=== PATIENT | male | born 1960 | race Caucasian/White ===

== ENCOUNTER 2022-04-29 00:38 | Day surgery (SDC) | payer BC, SELFPAY ==
[2022-04-22 15:14] VITALS: BMI 34.2
[2022-04-29 11:37] VITALS: BP 148/91; PULSE 97; RESP 20; TEMP 36.3; O2SAT 98
[2022-04-29 11:38] VITALS: BMI 35.4
[2022-04-29] MEDS: LACTATED RINGERS 1,000 ML 150 ML IV CONT (11:58)
--- NOTE | 2022-04-29 12:28 | P.PNAN_ITS ---
Anes - Initial Pre Proc Eval Procedure: Operation Date: 04/29/22 13:00 Proposed Procedures p Screening Colonoscopy - Johnathan Urrutia MD Date/Time: 04/29/22 12:28 Surgeon: Johnathan Urrutia MD Pre Op Diagnosis: Hx Colon Polyps Patient Data Age: 61 Gender: M Height: 1.75 m Weight: 109 kg Last Vital Signs Temp 97.4 F L 04/29/22 11:37 Pulse 97 04/29/22 11:37 Resp 20 04/29/22 11:37 BP 148/91 H 04/29/22 11:37 Pulse Ox 98 04/29/22 11:37 O2 Del Method Room Air 04/29/22 11:37 Allergies Allergy/AdvReac Type Severity Reaction Status Date / Time No Known Allergies Allergy Verified 04/29/22 11:37 Home Medications Medication Instructions Recorded Confirmed Type adalimumab 40 mg/0.8 mL See Rx Instructions .Route .COMPLEX 04/22/22 04/22/22 History subcutaneous pen kit (Humira Pen) folic acid 1 mg tablet 1 mg PO DAILY 04/22/22 04/22/22 History methotrexate sodium 2.5 mg tablets 2.5 mg PO WEEKLY 04/22/22 04/22/22 History in a dose pack Patient hx anesthesia problems: none Family hx anesthesia problems: none Results Review: All pre-operative results and documents have been reviewed as part of the pre- operative evaluation. [facility] Social History Social History Years smoked: 30 Smoking status: Former smoker Drinks per week: 15 Substance use type: does not use Living arrangements: with family Anes - Eval Final PreProcedure Day of Procedure 04/29/22 12:28 Patient weight: obese Heart: regular rate and rhythm Lungs: clear to auscultation Airway: Mallampati scale class II Neurological: alert and oriented Last oral intake: >/= 8 hours ASA classification: III Emergent: no Anesthetic plan: proceed Anesthesia type and monitoring: general GIVS and standard monitoring Results Review: All pre-operative results and documents have been reviewed as part of the pre- operative evaluation. Informed Consent: The patient's anesthetic plan and its attendant risks and benefits were discussed with the patient/family/POA. Questions were solicited and answers provided to the satisfaction of the patient/family/POA.
--- NOTE | 2022-04-29 12:55 | P.HP_ITS ---
History of Present Illness History of Present Illness Consent: Risks, benefits, and alternatives have been discussed and questions answered. Patient agrees to proceed with procedure. Chief complaint: Hx Colon Polyps Narrative: Luis Alberto Fishman is a 61 year old male referred for colon cancer screening. he has had polyps removed in the past, in 2014 and 2017. Review of Systems Review of Systems: All systems reviewed & are unremarkable except as noted in HPI and below [facility] Social History Social History Years smoked: 30 Smoking status: Former smoker Drinks per week: 15 Substance use type: does not use Living arrangements: with family Meds Home Medications and Allergies Home Medications Medication Instructions Recorded Confirmed Type adalimumab 40 mg/0.8 mL See Rx Instructions .Route .COMPLEX 04/22/22 04/22/22 History subcutaneous pen kit (Humira Pen) folic acid 1 mg tablet 1 mg PO DAILY 04/22/22 04/22/22 History methotrexate sodium 2.5 mg tablets 2.5 mg PO WEEKLY 04/22/22 04/22/22 History in a dose pack Allergies Allergy/AdvReac Type Severity Reaction Status Date / Time No Known Allergies Allergy Verified 04/29/22 11:37 Vital Signs Vital Signs - 24 hr 04/29/22 11:37 Temperature 36.3 C L Pulse Rate 97 Respiratory Rate 20 Blood Pressure 148/91 H Pulse Oximetry 98 Oxygen Delivery Room Air Exam Const: General: alert Orientation/consciousness: patient oriented x3 Resp: Auscultation: clear to auscultation bilaterally Cardio: Rhythm: regular rhythm GI: GI Palp: Yes Soft to palpation and No Tenderness to palpation present (GI) Neuro: General: patient oriented x3 Assessment and Plan Assessment and plan (1) Colon cancer screening: Code(s): Z12.11 - Encounter for screening for malignant neoplasm of colon Status: Acute Assessment and Plan: Colonoscopy with possible biopsy or polypectomy or cautery or injection of substances.
[2022-04-29 13:50] VITALS: BP 103/68; PULSE 90; RESP 22; O2SAT 98
[2022-04-29 14:00] VITALS: BP 132/88; PULSE 85; RESP 25; O2SAT 98
[2022-04-29 14:10] VITALS: BP 144/95; PULSE 81; RESP 16; O2SAT 98
--- NOTE | 2022-04-30 09:44 | SUR.PHASEII ---
Spoke with patient today checking up on him following procedure yesterday. Patient asked whether he should resume his methotrexate at home. Patient's discharge paperwork states to resume home medications. Spoke with JAVAN Fuentes regarding this medication, and instructed patient to resume medications per orders. Patient agreeable with this. No new questions at this time. Instructed patient to call with any further questions.
== END 2022-04-29 14:18 | disposition home or self-care (01) ==
PROVIDERS: PCP Nurse Practitioner Family; Visit Provider Internal Medicine Gastroenterology
PROC: 0DJD8ZZ Inspection of Lower Intestinal Tract, Via Natural or Artificial Opening Endoscopic (ICD-10-PCS; CPT 45378; principal; 2022-04-29 13:00)
DX: Z12.11 Encounter for screening for malignant neoplasm of colon (principal); K64.8 Other hemorrhoids; K57.30 Diverticulosis of large intestine without perforation or abscess without bleeding; D12.4 Benign neoplasm of descending colon; K63.5 Polyp of colon; Z87.891 Personal history of nicotine dependence; E66.9 Obesity, unspecified; Z68.35 Body mass index [BMI] 35.0-35.9, adult
CPT/HCPCS: 45385; 88305; J2704; J7120